=== PATIENT | male | born 1970 | race Caucasian/White ===

== ENCOUNTER 2023-11-19 21:07 | Emergency (ER) | payer BC, SELFPAY ==
--- NOTE | ~2023-11-19 | XR_ITS ---
Left Knee Technique: AP, lateral, and oblique views were obtained. Clinical History: Swelling Findings: No fracture or dislocation is seen. Osseous alignment is anatomic. Joint spaces are preserv ed without degenerative or erosive change. Probable moderate joint effusion is seen. Impression: Probable moderate joint effusion, nonspecific. Reviewed, dictated and finalized at location . Impression: Probable moderate joint effusion, nonspecific.
[2023-11-19 21:08] VITALS: BP 123/93; PULSE 103; RESP 18; TEMP 36.4; O2SAT 97
--- NOTE | 2023-11-20 00:14 | ED.EXTPRO ---
HPI - Extremity Problem General Chief complaint: Extremity Problem,Nontraumatic <Sasha Gonzalez APRN - Last Filed: 11/20/23 02:10> Stated complaint: Left knee pain <Sasha Gonzalez APRN - Last Filed: 11/20/23 02:10> Time Seen by Provider: 11/19/23 22:58 <Sasha Gonzalez APRN - Last Filed: 11/20/23 02:10> Source: patient and family <Sashaaurea Gonzalez APRN - Last Filed: 11/20/23 02:10> Mode of arrival: ambulatory <Sasha Gonzalez APRN - Last Filed: 11/20/23 02:10> Limitations: no limitations <Sasha Gonzalez APRN - Last Filed: 11/20/23 02:10> History of Present Illness HPI Narrative: Patient is a 52-year-old male who presents to the ER with complaints left knee swelling. He reports his pain started 2-1/2 days ago in the middle of his back. He reports the pain then presented in his left knee along with swelling and warmth. Patient reports he put a knee mobilizer on his left lower extremity but it was so tight that it was cutting off circulation and caused his left ankle to swell. 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 Patient endorses no pain when he is resting but it increases when he is walking. He denies other signs /symptoms of illness. Patient denies any medical history besides hyperlipidemia which he takes daily medication, along with baby aspirin. <Sasha Gonzalez APRN - Last Filed: 11/20/23 02:10> Related Data Home medications: Home Medications Medication Instructions Recorded Confirmed aspirin 81 mg tablet,delayed 81 mg PO DAILY 01/07/19 release rosuvastatin 5 mg tablet 5 mg PO DAILY 01/08/19 <Sasha Gonzalez APRN - Last Filed: 11/20/23 02:10> Allergies/Adverse reactions: Allergies Allergy/AdvReac Type Severity Reaction Status Date / Time No Known Allergies Allergy Verified 11/19/23 21:10 <Sasha Gonzalez APRN - Last Filed: 11/20/23 02:10> Review of Systems Review of Systems: All systems reviewed & are unremarkable except as noted in HPI and below <Sasha Gonzalez APRN - Last Filed: 11/20/23 02:10> [facility], [facility] Past Medical History Medical History: Medical History HLD (hyperlipidemia) <Sasha Gonzalez APRN - Last Filed: 11/20/23 02:10> Surgical History Surgical History: Surgical History Status post laparoscopic cholecystectomy <Sasha Gonzalez APRN - Last Filed: 11/20/23 02:10> Social History Social History: Social History Years smoked: 6 Smoking status: Former smoker Tobacco type: cigarettes Second hand tobacco smoke exposure: No Alcohol intake: current Drinks per week: 10 Substance use: never Substance use type: does not use Living arrangements: with family Occupation/Education: occupation Gender identity (if verbalized by the patient): Male <Sasha Gonzalez APRN - Last Filed: 11/20/23 02:10> Exam Narrative: GENERAL: Well appearing, well-nourished, non-toxic, in no acute distress. HEAD: Normocephalic, atraumatic. NECK: Supple. No adenopathy, no masses. RESPIRATORY: Airway patent, respirations nonlabored. Clear to auscultation bilaterally, no rales, rhonchi, wheezing. CARDIOVASCULAR: Regular rate and rhythm without murmurs, rubs, or gallops. Peripheral pulses 2+ and equal bilaterally. ABDOMINAL: Soft, nontender, nondistended, no hepatosplenomegaly. Normoactive BS. MUSCULOSKELETAL: Moves all extremities. Pt's LLE is swollen around his knee joint. His L calf is more swollen than his R calf, but there is no discoloration or warmth noted. SKIN: Warm, dry, normal color. No rashes. NEURO: A&O X3. Speech clear. Cranial nerves II-XII grossly intact. No ataxic movements. PSYCHIATRIC: Appropriate mood and affect. Normal interaction. <Hoda
[2023-11-20 00:27] VITALS: BP 120/81; PULSE 97; RESP 19; TEMP 36.4; O2SAT 99
[2023-11-20 01:00] LABS: Basophils Percent Auto 0.7 % (0.2-1.2); Eosinophils Absolute Auto 0.2 K/mm3 (0-0.3); Eosinophils Percent Auto 3.2 % (0-4.4); Hematocrit 41.6 % (42.0-52.0); Hemoglobin 13.8 g/dL (14.0-18.0); Immature Granulocyte Absolute 0.03 K/mm3 (0.00-0.031); Immature Granulocyte Percent A 0.5 % (0-0.5); Lymphocytes Absolute Auto 1.92 K/mm3 (0.9-3.2); Lymphocytes Percent Auto 33.7 % (18.3-44.2); Mean Corpuscular HGB Conc 33.2 g/dl (32-36); Mean Corpuscular Hemoglobin 31.4 pg (26-34); Mean Corpuscular Volume 94.5 fl (80-100); Monocytes Absolute Auto 0.7 K/mm3 (0.1-0.6); Monocytes Percent Auto 12.1 % (2.6-8.5); Neutrophils Absolute Auto 2.8 K/mm3 (1.3-6.7); Neutrophils Percent Auto 49.8 % (45.5-73.1); Platelet Count Result 234 k/mm3 (150-375); Red Cell Distribution Width 13.3 % (11.5-14.5); White Blood Count 5.7 K/mm3 (4.5-10.0)
[2023-11-20 01:22] LABS: Alanine Aminotransferase 41 U/L (6-50); Albumin Level 4.2 g/dL (3.5-5.1); Alkaline Phosphatase 72 U/L (38-126); Anion Gap 12 mmol/L (4-12); Aspartate Amino Transferase 44 U/L (17-59); Bilirubin,Total 0.4 mg/dL (0.2-1.3); Blood Urea Nitrogen 23 mg/dL (9-20); Calcium 8.7 mg/dL (8.4-10.2); Carbon Dioxide 24 mmol/L (22-30); Chloride 103 mmol/L (98-107); Estimated CRCL calculation 144 ml/min; Estimated Glomerular Filt Rate > 60; Glucose 106 mg/dL (65-110); Sodium 139 mmol/L (137-145); Uric Acid 7.2 mg/dL (3.5-8.5)
[2023-11-20 01:37] LABS: D Dimer < 0.27 ug/mL (<0.48)
[2023-11-20] MEDS: NAPROXEN 500 MG TABLET PO (02:35)
== END 2023-11-20 02:50 | disposition home or self-care (01) ==
PROVIDERS: Emergency Provider Registered Nurse; PCP Family Medicine
DX: R22.42 Localized swelling, mass and lump, left lower limb (principal); E78.5 Hyperlipidemia, unspecified; Z87.891 Personal history of nicotine dependence; Z90.49 Acquired absence of other specified parts of digestive tract; Z79.82 Long term (current) use of aspirin; Z79.899 Other long term (current) drug therapy
CPT/HCPCS: 36415; 73562; 80053; 84550; 85025; 85380; 93971; 99283; A9270

== ENCOUNTER 2023-11-20 08:10 | Outpatient (CLI) | payer BC, SELFPAY ==
--- NOTE | ~2023-11-20 | US_ITS ---
LEFT LOWER EXTREMITY VENOUS ULTRASOUND Ordering provider: Sasha Gonzalez APRN History: . PAIN IN LEFT LEG . Comparison: None. FINDINGS: --COMMON FEMORAL: Patent and free of thrombus. Normal compressibility, phasic flow and augmentation. --PROXIMAL SUPERFICIAL FEMORAL: Patent and free of thrombus. Normal compressibility, phasic flow and augmentation. --DISTAL SUPERFICIAL FEMORAL: Patent and free of thrombus. Normal compressibility, phasic flow and au gmentation. --POPLITEAL: Patent and free of thrombus. Normal compressibility, phasic flow and augmentation. --POSTERIOR TIBIAL: Patent and free of thrombus. Normal compressibility, phasic flow and augmentation . IMPRESSION: Negative left lower extremity venous US. No deep vein thrombosis. Reviewed, dictated and finalized at location A.
== END 2023-11-20 08:11 | disposition home or self-care (01) ==
PROVIDERS: PCP Family Medicine; Visit Provider Registered Nurse
DX: M79.662 Pain in left lower leg (principal)
CPT/HCPCS: 93971

== ENCOUNTER 2024-07-13 19:07 | Emergency (ER) | payer BC, SELFPAY ==
--- OUTSIDE RECORDS SUMMARY | 2024-07-13 19:09 | XMS_ITS | Data Portability ---
Author Organization [place] - [facility] OFFICE Address [facility] [place] [address] Care Team Providers Care Account Leader Name Role Phone RONEL DENTON Primary Care Provider Assessment Encounter Date Assessment Date Assessment LastModified by Organization Details LastModified Time 02/16/2023 02/16/2023 Patient Examined by SIMONE Cage, Also Documentation reviewed and approved by supervising physician [email or web address] Not available 02/16/2023 14:52:46 Plan of Treatment Reminders Order Date Submit Date Provider Last Modified By Organization Details Last Modified Time Details Appointments None recorded. Lab urinalysis, complete 2023 024 [email or web address] Not available 4 10:33:14 HbA1c (hemoglobin A1c), blood 2023 024 [email or web address] Not available 4 10:33:15 hematocrit, blood 2023 024 [email or web address] Not available 4 10:33:15 creatinine w/ estimated GFR (eGFR), serum or plasma 2023 024 [email or web address] Not available 4 10:33:15 lipid panel, serum 2023 024 [email or web address] Not available 4 10:33:15 electrolyte panel, serum 2023 024 [email or web address] Not available 4 10:33:15 Referral None recorded. Procedures None recorded. Surgeries None recorded. Imaging None recorded. Medication Orders rosuvastati n 5 mg tablet 2023 024 [facility], [facility] [place], [address], 15:00:47 rosuvastati n 10 mg tablet [address] [id number], [address] [facility], [place], [place], [id number], 12:15:07 rosuvastati n 5 mg tablet 2020 021 [facility], [address] [place], [address], 13:35:22 Patient TargetsNo targets recorded. Patient Instructions Encounter Date Encounter Id Patient Instructions Last Modified By Organization Details Last Modified Time 07/28/2020 [id number] Exercise advised Low cholesterol diet advised Low sodium diet advised. [email or web address] Not available 07/30/2020 13:35:10 Scribed by Lisseth Fishman, MSN, SEED ANALYSIS LABORATORY ASSISTANT, [employer]ER-C Not available 07/30/2020 13:35:18 02/16/2023 [id number] Low cholesterol diet advised Low sodium diet advised. [email or web address] Not available 02/16/2023 15:00:38 03/28/2023 [id number] Weight loss 20 pounds Exercise advised Low cholesterol diet advised Low sodium diet advised. [email or web address] Not available 03/28/2023 15:42:22 Reason for Referral None Reported. Results Created Date Observation Date Name Description Value Unit Range Abnormal Flag Note LastModifiedBy Organization Detail LastModifiedTime 07/30/1907/28/2020 elect rocar diogr am No observ ation record ed. [email or web address] Not Available 2020 10:46:08 11/09/19 21 11/02/2020 , echo ardio gram No observ ation record ed. [facility] [address] [place] [address] [address] Garcia, [place], [address], 12/08/2020 16:55:22 02/28/19 23 02/24/2022 elect rocar diogr am No observ ation record ed. [email or web address] Not Available 2022 14:19:03 02/25/19 24 02/16/2023 elect allanar diogr am No observ ation record ed. [email or web address] Not Available 2023 11:10:16 03/28/19 24 03/22/2023 US, echoc ardio gram No observ ation record ed. [email or web address] Not Available 2023 09:56:17 03/29/19 24 03/10/2023 sleep study No observ ation record ed. [email or web address] Not Available 2023 13:15:04 Result Notes None recorded. Problems Name Problem SNOMED Code Status Onset Date Resolution Date Notes Provider Name and Address Organization Details Recorded Time Near syncope 477123191 Active 2018 Dav pena, [place] - [facility] 9 00:45:31 Mitral valve prolapse 013179069 Active 2018 Dav Forrester [place], [place] - [facility] 9 00:45:41 Tobacco dependence syndrome 91634006 Active 2018 Darricka Mitzy [place], [place] - [facility] 9 00:45:58 Obesity 961517316 Active 2018 Darricka Mit[place] - [facility] 9 00:46:13 Gallstone 027819782 Active 2018 Hala Mitzy [place] - [facility] 9 00:46:32 Chest pain 07443927 Active 2018 Dav Forrester [place] - [facility] 9 00:46:47 Alcohol dependence 29781696 Active 2018 Darricka Mit[place] - [facility] 9 00:49:54 Caffeine overdose 278387133 Active 2018 Darricka Mit[place] [facility] 9 00:50:30 Body mass index 30+ - obesity 588890719 Active 2018 Dav Forrester [place] - [facility] 9 00:50:44 Breathing- related sleep disorder 842057178 Active 2018 Dav Forrester [place], [place] - [facility] 9 00:51:16 Palpitatio ns 61648022 Active 2018 Dav Forrester null, [facility] 9 00:51:56 Hyperglyce charanjit 44261904 Active 2018 Dav Forrester null, [facility] 9 00:53:06 Bradycardi a 18687456 Active 2018 bradycardi a resting in the 40s at times Eric Yu i, MD [address] [place], [address] [place] [address] [facility] 9 13:27:22 Dyslipidem ia 076685285 Active 2018 Joss Ortiz [facility], [facility] 3 12:38:31 Problem Notes None recorded. Medical Equipment None Reported. Allergies No known drug allergies Medications Name Sig Start Date Stop Date Status Note LastModified by Organization Details LastModified Time amoxicilli n 500 mg capsule TAKE 1 CAPSULE BY MOUTH EVERY 6 HOURS UNTIL GONE 02/16 completed no longer takes 02/24/22 mb Not Available Not Available Not Available atorvastat in 40 mg tablet 1 Tab, OD 12/04 completed Not Available Not Available Not Available azithromyc in 250 mg tablet 05/08 completed Not Available Not Available Not Available hydrocodon e 5 mg-acetami nophen 325 mg tablet TAKE 1 TABLET BY MOUTH EVERY 4 TO 6 HOURS NEEDED FOR PAIN 02/16 completed no longer takes 02/24/22 mb Not Available Not Available Not Available penicillin V potassium 500 mg tablet 12/04 completed Not Available Not Available Not Available acetaminop hen 300 mg-codeine 30 mg tablet 12/04 completed Not Available Not Available Not Available nitroglyce rin 0.4 mg sublingual tablet prn 02/16 completed pt needs refill 021 [place] Not Available Not Available Not Available rosuvastat in 5 mg tablet Take 1 tablet by mouth every day 2023 active Not Available Not Available Not Avai lable rosuvastat in 10 mg tablet Take 1/2 tablet by mouth every day 02/15 completed Not Available Not Available Not Available aspirin 81 mg, 1 tab, OD 02/15 completed Not Available Not Available Not Available vitamin B complex 250 mg, 1 tab OD 07/28 completed pt not taking 07/28/20 Not Available Not Available Not Available Adult Aspirin Regimen 81 mg tablet,del ayed release Take 1 tablet every day by oral route. active Not Available Not Available No t Available ID NOW COVID-19 Test Kit TEST DIRECTED TODAY active Not Available Not Available No t Available Vitals Date Recorded Body height Body mass index (BMI) Body weight Heart rate Oxygen saturation Oxygen saturation in Arterial blood by Pulse oximetry Systolic blood pressure Diastolic blood pressure Provider Name and Address Organization Details Last Updated DateTime 4 190.5 cm 38.9 kg/m2 477409. 23 g 88 /min 93 % 93 % 143 mm[Hg] 95 mm[Hg] Heidy Blackburn [facility] 4 14:21:37 Date Recorded Body height Body mass index (BMI) Body weight Heart rate Oxygen saturation Oxygen saturation in Arterial blood by Pulse oximetry Systolic blood pressure Diastolic blood pressure Provider Name and Address Organization Details Last Updated DateTime 3 190.5 cm 36.7 kg/m2 226564. 16 g 68 /min 96 % 96 % 136 mm[Hg] 72 mm[Hg] Jodi Jamia [facility] 3 11:17:46 Date Recorded Body height Body mass index (BMI) Body weight Heart rate Respiratory rate Oxygen saturation Oxygen saturation in Arterial blood by Pulse oximetry Systolic blood pressure Diastolic blood pressure Provider Name and Address Organization Details Last Updated DateTime 4 190.5 cm 40.1 kg/m2 733694. 15 g 87 /min 16 /min 94 % 94 % 138 mm[Hg] 82 mm[Hg] Sim Marrero [facility] 4 15:21:28 Date Recorded Body height Body mass index (BMI) Body weight Heart rate Respiratory rate Oxygen saturation Oxygen saturation in Arterial blood by Pulse oximetry Systolic blood pressure Diastolic blood pressure Provider Name and Address Organization Details Last Updated DateTime 1 190.5 cm 40.6 kg/m2 005938. 52 g 93 /min 18 /min 97 % 97 % 130 mm[Hg] 94 mm[Hg] Arelis Toscano [facility] 1 17:32:25 Date Recorded Body height Body mass index (BMI) Body weight Heart rate Respiratory rate Oxygen saturation Oxygen saturation in Arterial blood by Pulse oximetry Systolic blood pressure Diastolic blood pressure Provider Name and Address Organization Details Last Updated DateTime 1 190.5 cm 40.4 kg/m2 895727. 34 g 86 /min 18 /min 96 % 96 % 118 mm[Hg] 80 mm[Hg] Arelis Toscano [facility] 14:27:55 Date Recorded Systolic blood pressure Diastolic blood pressure Provider Name and Address Organization Details Last Updated DateTime 09/29/2020 141 mm[Hg] 80 mm[Hg] Lisseth Fishman [facility] 09/29/2020 17:40:20 Date Recorded Body height Oxygen saturation Oxygen saturation in Arterial blood by Pulse oximetry Heart rate Body mass index (BMI) Body weight Provider Name and Address Organization Details Last Updated DateTime 1 190.5 cm 99 % 99 % 70 /min 40.9 kg/m2 212720. 7 g RADHA WASHINGTON [facility] 17:30:47 Social History Question Answer Notes LastModified by [employer] Details LastModified Time Tobacco Smoking Status Former Smoker quit 2012 Joss pena [facility] 10/12/2023 05:37:17 What Is Your Level Of Caffeine Consumption? Moderate [id number] Information not available 12/10/2019 What Type Of Diet Are You Following? REGULAR [id number] Information not available 12/10/2019 Live Alone Or With Others? With Others [email or web address] Information not available 05/08/2018 Marital Status [email or web address] Information not available 05/08/2018 What Was The Date Of Your Most Recent Tobacco Screening? 06/05/2018 [id number] Information not available 12/10/2019 How Many Children Do You Have? 0 [id number] Information not available 12/10/2019 How Much Tobacco Do You Smoke? 1 PPD [id number] Information not available 12/10/2019 How Many Years Have You Smoked Tobacco? 6 [id number] Information not available 12/10/2019 Sex: Unknown Functional Status Question Answer Note LastModified by [employer] Details LastModified Time What is your level of alcohol consumption? Moderate he quit [email or web address] Information not available 10/12/2023 What is your exercise level? None [id number] Information not available 12/10/2019 Mental Status None recorded. Family History Nothing Reported. Medical History Condition Response Valvular Heart Disease Y Hyperlipidemia Y Past Encounters Encounter ID Performer Location Encounter Start Date Encounter Closed Date Diagnosis/Indication Diagnosis SNOMED-CT Code Diagnosis ICD10 Code Diagnosis Note [id number] Eric Pedroza MD [facility] [address] [place] [address] 05/08/2018 14:22:01 05/08/2018 15:43:50 Dizziness 055626004 R42 Will arrange for cardiac CTA, he has high [place] Risk score. he would benefit from CT to look for any Coronary Artery Disease Palpitations 32966808 R0 0.2 Mitral valve prolapse 40 8201718 I34.1 mild MVP on 05/05/18 echo Snoring 76969141 R06.83 patient will benefit from sleep study Dyslipidemia 732979573 E 78.5 05/04/2018 Lipids: Trig 114, Chol 173, HDL 43, LDL 107 [id number] Eric Pedroza MD [facility] [address] [place] [address] 06/05/2018 12:06:47 06/05/2018 13:43:29 Dizziness 740810419 R42 Resolved now. He underwent a TMST on 05/05/18 that was negative for ischemia with normal LV systolic function. Had cardiac CTA on 05/14/18 revealing only mild CAD. Continue ASA and statin therapy. Palpitations 35650345 R0 0.2 Resolved now. Now consuming NO caffeine now. Mitral valve prolapse 40 1040287 I34.1 mild MVP on 05/05/18 echo Snoring 09360312 R06.83 patient will benefit from sleep study Dyslipidemia 455849390 E 78.5 Needs to keep LDL less than 70, and HDL more than 40 Trig 114, Chol 173, HDL 43, LDL 107 Now on atorvastat in 40 mg QHS [id number] Eric Pedroza MD [facility] [address] [place] [address] 12/04/2018 11:55:12 01/19/2019 19:04:42 Dizziness 143150641 R42 Resolved now. He underwent a TMST on 05/05/18 that was negative for ischemia with normal LV systolic function. Had cardiac CTA on 05/14/18 revealing only mild CAD. Continue ASA and statin therapy. Palpitations 85765427 R0 0.2 Resolved now. Now consuming NO caffeine now. Dyslipidemia 158354445 E 78.5 Needs to keep LDL less than 70, and HDL more than 40 Trig 114, Chol 173, HDL 43, LDL 107 No longer taking Atorvastat in; Will start Rosuvastat in 5mg daily. Mitral valve prolapse 40 7186522 I34.1 mild MVP on 05/05/18 echo Snoring 40593229 R06.83 patient will benefit from sleep study Peripheral venous insufficiency 29401270 I87.2 Will order venous reflux study. [id number] Eric Pedroza MD [facility] [address] [place] [address] 07/28/2020 16:59:14 07/30/2020 13:35:26 Hyperlipidemia 92418706 E78.5 Obtain FLP. Essential hypertension 26470874 I10 Elevated today. Blood pressure is elevated today, but this is only one reading, will keep close follow up, and consider medication change if blood pressure is still elevated next visit. Instructed to keep a log. Coronary arteriosclerosis 68552624 I25.10 Obtain echo to evaluate for structural /functiona l disease. [id number] Eric Pedroza MD [facility] [address] [place] [address] 09/29/2020 17:19:40 10/04/2020 22:52:06 Dyslipidemia 662850927 E78.5 Needs to keep LDL less than 70, and HDL more than 40 Trig 114, Chol 173, HDL 43, LDL 107 No longer taking Atorvastat in; Will start Rosuvastat in 5mg daily. Mitral valve prolapse 40 2163438 I34.1 mild MVP on 05/05/18 echoObtain echo to evaluate for structural /functiona l disease. Tobacco de pendence syndrome 23171931 F17.200 Advised to quit, patient is trying [id number] MD Billie Verduz[facility] Office [address] [place] [address] 02/24/2022 10:45:06 02/24/2022 11:39:24 Mitral valve prolapse 575523740 I34.1 mild MVP on 05/05/18 echoObtain echo to evaluate for structural /functiona l disease. Dyslipidemia 948347592 E 78.5 Needs to keep LDL less than 70, and HDL more than 40 Trig 114, Chol 173, HDL 43, LDL 107 No longer taking Atorvastat in; Will start Rosuvastat in 5mg daily. Alcohol dependence 08951 003 F10.20 Tobacco de pendence syndrome 85887011 F17.200 He quit 2012 Hyperlipidemia 84956992 E78.5 Obtain FLP. [id number] Eric Pedroza MD [place] [facility] [place] [address] 02/16/2023 14:06:57 02/16/2023 15:07:47 Mitral valve prolapse 679879610 I34.1 mild MVP on 05/05/18 echoUS, echocardio gram ECHO 11/02/20:L V chamber size is normal,LV wall thickness is normal,the estimated LVEF is 65-70%,LV relaxation is impaired,l eft atrium chamber is mildly dilated,mi tral valve prolapse cannot be ruled out. Dyslipidemia 512324295 E 78.5 Needs to keep LDL less than 70, and HDL more than 40 Trig 114, Chol 173, HDL 43, LDL 107 continue with Rosuvastat in 5mg daily. Alcohol dependence 17607 003 F10.20 He quit Tobacco de pendence syndrome 51629209 F17.200 He quit 2012 Hyperlipidemia 09414789 E78.5 Obtain FLP. Benign ess ential hypertension 1086132 I10 BP is well controlled today Dyspnea on exertion 6084 5006 R06.09 Obtain echo to evaluate for structural /functiona l disease. Obstructiv e sleep apnea syndrome 78782891 G47.33 snoring, daytime somnolence and AM headache. [id number] Eric Pedroza MD [place] [facility] [place] [address] 03/28/2023 14:53:28 03/28/2023 15:48:28 Mitral valve prolapse 605325535 I34.1 mild MVP on 05/05/18 echoUS, echocardio gram ECHO 11/02/20:L V chamber size is normal,LV wall thickness is normal,the estimated LVEF is 65-70%,LV relaxation is impaired,l eft atrium chamber is mildly dilated,mi tral valve prolapse cannot be ruled out. Dyslipidemia 838572787 E 78.5 Needs to keep LDL less than 70, and HDL more than 40 Trig 114, Chol 173, HDL 43, LDL 107 continue with Rosuvastat in 5mg daily. Alcohol dependence 59456 003 F10.20 He quit Tobacco de pendence syndrome 70418061 F17.200 He quit 2012 Hyperlipidemia 17623576 E78.5 Obtain FLP. Benign ess ential hypertension 2412836 I10 BP is well controlled today Obstructiv e sleep apnea syndrome 25203981 G47.33 Had a positive sleep study, will need Cpap Health Concerns Section Related Observation LastModified by Organization Detai ls LastModified Time None Recorded Concern Status LastModified by Organization Details LastModified Time None Recorded Advance Directives Directive None Recorded Payers Insurance Date Sequence Insurance Name Policy Number Policy Scott Covered Member ID Scott Member ID Guarantor Name 10/15/2023 1 JOE (PPO) [id number] 1 Christine Patiño [id number] Eliseo Patiño Notes Date Note Type Note Provider Name and Address Organization Details Recorded Time 07/28/2020 text/html 07/28/20 CC: Chest pain, palpitations 47 year-old man with a PMH of mitral valve prolapse, former tobacco dependence, heavy ETOH use, gallstones s/p cholecystectomy, obesity, presents today for follow-up. He was last seen in November 2018. Denies Er visits and hospitalization. No chest pain. No shortness of breath at rest. No dyspnea on exertion. No orthopnea. No PND's. No dizziness. No palpitation. No syncope or near syncope. No leg swelling. No nausea and vomiting. No side effects from medications. Former smoker; quiet approximately 15 years ago.Alcohol use; 3 times a week with 4-5 beers at a time. Reports that he isn't active. 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 Previously,Last seen 6 months ago. Down 8 lbs. Previously, he had a chief complaint of dizziness, palpitations, feeling warmth across chest, insomnia. Resolved now. Started on Atorvastatin 04/2018; he was on this for 2 months; stopped due to palpitations, insomnia. Initially evaluated for hospital visit to [facility] on 05/04/18 with complaints of atypical chest pain, near syncopal event. EKG was sinus bradycardia with no acute ischemic changes. Troponin I negative. D-dimer was less than 0.27. Urine drug screen was negative. He underwent a TMST on 05/05/18 that was negative for ischemia with normal LV systolic function. Had cardiac CTA on 05/14/18 revealing only mild CAD. He was at [facility] 3 days prior with similar symptoms of palpitations while seated. Had negative work-up. He had a distant past stress test many years ago which was reportedly good. He has no previous myocardial infarction, arrhythmia, hypertension, diabetes mellitus. He is a former smoker, 1 PPD for 6 years, quit 10 years ago. Drinks 3-4 beers a day on occasion, and occasional wine. Does have a daily high caffeine intake (1/2 pot of coffee daily.) Patient is adopted, no family history available. Patient has no children. 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 No chest pain. No shortness of breath at rest. No dyspnea on exertion. No orthopnea. No PND's. No dizziness. No palpitation. No syncope or near syncope. No leg swelling. No nausea and vomiting. No side effects from medications. Results from this visit, or from the past: 05/08/18 : Glucose 79,BUN 21,Creati 0.95Na 144,K 4.8,CL 106,Ca 9.7 05/05/18: Na 145 , K 4.4 ,CL 109 ,CO2 27, GLU 96, BUN 15, CR 0.9 ,HgA1c 4.9005/04/18: Hgb 14.8, Hct 43.6, Na 136, K 4.0, BUN 13, Cr 0.9, Glu 103, TSH 0.89 05/04/2018 Lipids:Trig 114, Chol 173, HDL 43, LDL 107 EKG, 12/04/18: Sinus Rhythm, ABN EKG, mu CT, angiogram, chest, w/wo contrast 05-14-2018 05/14/18 CTA chest: Mild coronary artery disease 05/05/18 EKG: Normal sinus rhythm with sinus arrhythmia. Normal ECG. When compared with ECG of 04-MAY-2018, ST elevation now present in inferior leads. Non-specific change in ST segmental in lateral leads. T wave inversion no longer evident in inferior leads. T wave amplitude has increased in anterior leads. cardiac stress test 05-05-2018 Body habitus limited evaluation,especially given the utilization of a one day protocol,There is probable small reversible perfusion abnormaqlityof mild US, echocardiogram 05-05-2018 There is normal left ventricular wall thickness .THe lleft ventricle is normal in structure and function,Ejection fraction =55-60% NM, myocardial perfusion scan, w/ stress 05-05-2018 05/04/18 Stress Myoview Walk: Mild exercise impairment. Adequate heart rate response to exercise. Adequate blood pressure to exercise. Test negative 05/14/18 CTA chest: Mild coronary artery disease Lisseth Fishman [facility] 07/30/2020 13:35:25 09/29/2020 text/html 09/29/20CC : Car diac follow up49 year-old man with a PMH of mitral valve prolapse, former tobacco dependence, heavy ETOH use, gallstones s/p cholecystocecostomy, and obesity, presents today for 2 week follow-up.He was last seen in the clinic on 07/28/20 , since then he feels wellDenies chest pain.Denies shortness of breath at rest. Has mild dyspnea on exertion.No orthopnea. No PNDs.Denies heart palpitations.Denies dizziness. Denies syncope or near syncope.No ankle or leg edema.No major bleeding events.No reported side effects from medications. Taking medications as prescribed with no missed doses.Denies snoring, daytime somnolence and AM headache.Former smoker; quiet approximately 15 years ago.Alcohol use; 3 times a week with 4-5 beers at a time.He is a former smoker, 1 PPD for 6 years, quit 10 years ago. Drinks 3-4 beers a day on occasion, and occasional wine.Reports that he isn't active. 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 I negative. D-dimer was less than 0.27. Urine drug screen was negative.He underwent a TMST on 05/05/18 that was negative for ischemia with normal LV systolic function.*Had cardiac CTA on 05/14/18 revealing only mild CAD.He was at [facility] 3 days prior with similar symptoms of palpitations while seated. Had negative work-up.He has no previous myocardial infarction, arrhythmia, hypertension, diabetes mellitus.Does have a daily high caffeine intake (1/2 pot of coffee daily.)Patient is adopted, no family history available. Patient has no children. 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 Normal ECG. When compared with ECG of 04-MAY-2018, ST elevation now present in inferior leads. Non-specific change in ST segmental in lateral leads. T wave inversion no longer evident in inferior leads. T wave amplitude has increased in anterior leads.cardiac stress test [id number] habitus limited evaluation,especially given the utilization of a one day protocol,There is probableUS, echocardiogram [id number] is normal left ventricular wall thickness .THe left ventricle is normal in structure and function,Ejection fraction =55-60%NM, myocardial perfusion scan, w/ stress Stress Myoview Walk: Mild exercise impairment. Adequate heart rate response to exercise. Adequate blood pressure to exercise. Test negative 05/14/18 CTA chest: Mild coronary artery disease Eric Pedroza MD [address] [place], [address], [facility] 10/04/2020 22:52:05 02/24/2022 text/html 02/24/22CC : Car diac follow up, dyspnea on [id number] year-old man with a PMH of mitral valve prolapse, former tobacco dependence, heavy ETOH use, gallstones s/p cholecystocecostomy, and obesity, presents today for follow-up with ECHO results. He was last seen in the clinic on 09/29/20, since then he is doing wellHe denies ER visits and hospitalizations since he was last seen. Today reports:Denies chest pain.Denies shortness of breath at rest. Has mild dyspnea on exertion.No orthopnea. No PNDs.Denies heart palpitations.Denies dizziness. Denies syncope or near syncope.No ankle or leg edema.No major bleeding events.No reported side effects from medications. Taking medications as prescribed with no missed doses.Denies snoring, daytime somnolence and AM headache.*Last LDL was 107 done on 05/04/18.Pt takes rosuvastatin 5 mg. *Had ECHO 11/02/20 showed LV chamber size is normal,LV wall thickness is normal,the estimated LVEF is 65-70%,LV relaxation is impaired,left atrium chamber is mildly dilated,mitral valve prolapse cannot be ruled out. Previously:Former smoker; quiet approximately 15 years ago.Alcohol use; 3 times a week with 4-5 beers at a time.He is a former smoker, 1 PPD for 6 years, quit 10 years ago. Drinks 3-4 beers a day on occasion, and occasional wine.Reports that he isn't active. 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 EKG was sinus bradicardia with no acute ischemic changes. I negative. D-dimer was less than 0.27. Urine drug screen was negative.He underwent a TMST on 05/05/18 that was negative for ischemia with normal LV systolic function.*Had cardiac CTA on 05/14/18 revealing only mild CAD.He was at [facility] 3 days prior with similar symptoms of palpitations while seated. Had negative work-up.He has no previous myocardial infarction, arrhythmia, hypertension, diabetes mellitus.Does have a daily high caffeine intake (1/2 pot of coffee daily.)Patient is adopted, no family history available. Patient has no children. 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 Normal ECG. When compared with ECG of 04-MAY-2018, ST elevation now present in inferior leads. Non-specific change in ST segmental in lateral leads. T wave inversion no longer evident in inferior leads. T wave amplitude has increased in anterior leads.cardiac stress test [id number] habitus limited evaluation,especially given the utilization of a one day protocol,There is probableUS, echocardiogram [id number] is normal left ventricular wall thickness .THe left ventricle is normal in structure and function,Ejection fraction =55-60%NM, myocardial perfusion scan, w/ stress Stress Myoview Walk: Mild exercise impairment. Adequate heart rate response to exercise. Adequate blood pressure to exercise. Test negative 05/14/18 CTA chest: Mild coronary artery disease Eric Pedroza MD [address] [place], [address], [facility] 02/24/2022 11:38:42 02/16/2023 text/html 02/16/23CC : Car diac follow up dyspnea on [id number] year-old man with a PMH of mitral valve prolapse, former tobacco dependence, former heavy ETOH use, mild coronary artery disease per his CT, gallstones s/p cholecystocecostomy, and obesity, presents today for 1 year follow-up. He was last seen in the clinic on 02/24/22, since then he is doing well. He is very active with no problem. He denied chest pain or dyspnea on exertion. *Last LDL was 93 done on 02/03/22.Pt takes rosuvastatin 5 mg. He denies ER visits and hospitalizations since he was last seen. Today reports:no ccDenies chest pain.Denies shortness of breath at rest. Has mild dyspnea on exertion.No orthopnea. No PNDs.Denies heart palpitations.Denies dizziness. Denies syncope or near syncope.No ankle or leg edema.No major bleeding events.No reported side effects from medications. Taking medications as prescribed with no missed doses.yes snoring, daytime somnolence and AM headache.*Last LDL was 93 done on 02/03/22.Pt takes rosuvastatin 5 mg. Previously:*Had ECHO 11/02/20 showed LV chamber size is normal,LV wall thickness is normal,the estimated LVEF is 65-70%,LV relaxation is impaired,left atrium chamber is mildly dilated,mitral valve prolapse cannot be ruled out. Former smoker; quiet approximately 15 years ago.Alcohol use; 3 times a week with 4-5 beers at a time.He is a former smoker, 1 PPD for 6 years, quit 10 years ago. Drinks 3-4 beers a day on occasion, and occasional wine. Reports that he isn't active. 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 I negative. D-dimer was less than 0.27. Urine drug screen was negative.He underwent a TMST on 05/05/18 that was negative for ischemia with normal LV systolic function.*Had cardiac CTA on 05/14/18 revealing only mild CAD.He was at [facility] 3 days prior with similar symptoms of palpitations while seated. Had negative work-up.He has no previous myocardial infarction, arrhythmia, hypertension, diabetes mellitus.Does have a daily high caffeine intake (1/2 pot of coffee daily.)Patient is adopted, no family history available. Patient has no children. 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 Normal ECG. When compared with ECG of 04-MAY-2018, ST elevation now present in inferior leads. Non-specific change in ST segmental in lateral leads. T wave inversion no longer evident in inferior leads. T wave amplitude has increased in anterior leads.cardiac stress test [id number] habitus limited evaluation,especially given the utilization of a one day protocol,There is probableUS, echocardiogram [id number] is normal left ventricular wall thickness .THe left ventricle is normal in structure and function,Ejection fraction =55-60%NM, myocardial perfusion scan, w/ stress Stress Myoview Walk: Mild exercise impairment. Adequate heart rate response to exercise. Adequate blood pressure to exercise. Test negative 05/14/18 CTA chest: Mild coronary artery disease Danielle Mancia [facility] 02/21/2023 15:11:52 03/28/2023 text/html 03/28/23CC : Car diac follow up52 year-old man with a PMH of mitral valve prolapse, former tobacco dependence, former heavy ETOH use, mild coronary artery disease per his CT, gallstones s/p cholecystocecostomy, and obesity, presents today for 1 month follow-up. He was last seen in the clinic on 02/16/23, since then he had sleep study, with moderate PONCE, will need CpapHe denies ER visits and hospitalizations since he was last seen. Today reports:Denies chest pain.Denies shortness of breath at rest. Has mild dyspnea on exertion.No orthopnea. No PNDs.Denies heart palpitations.Denies dizziness. Denies syncope or near syncope.No ankle or leg edema.No major bleeding events.No reported side effects from medications. Taking medications as prescribed with no missed doses.Denies snoring, daytime somnolence and AM headache.*Last LDL was 93 done on 02/03/22.Pt takes rosuvastatin 5 mg. Previously:*Had ECHO 11/02/20 showed LV chamber size is normal,LV wall thickness is normal,the estimated LVEF is 65-70%,LV relaxation is impaired,left atrium chamber is mildly dilated,mitral valve prolapse cannot be ruled out. Former smoker; quiet approximately 15 years ago.Alcohol use; 3 times a week with 4-5 beers at a time.He is a former smoker, 1 PPD for 6 years, quit 10 years ago. Drinks 3-4 beers a day on occasion, and occasional wine. Reports that he isn't active. 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 I negative. D-dimer was less than 0.27. Urine drug screen was negative.He underwent a TMST on 05/05/18 that was negative for ischemia with normal LV systolic function.*Had cardiac CTA on 05/14/18 revealing only mild CAD.He was at [facility] 3 days prior with similar symptoms of palpitations while seated. Had negative work-up.He has no previous myocardial infarction, arrhythmia, hypertension, diabetes mellitus.Does have a daily high caffeine intake (1/2 pot of coffee daily.)Patient is adopted, no family history available. Patient has no children. 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 Normal ECG. When compared with ECG of 04-MAY-2018, ST elevation now present in inferior leads. Non-specific change in ST segmental in lateral leads. T wave inversion no longer evident in inferior leads. T wave amplitude has increased in anterior leads.cardiac stress test [id number] habitus limited evaluation,especially given the utilization of a one day protocol,There is probableUS, echocardiogram [id number] is normal left ventricular wall thickness .THe left ventricle is normal in structure and function,Ejection fraction =55-60%NM, myocardial perfusion scan, w/ stress Stress Myoview Walk: Mild exercise impairment. Adequate heart rate response to exercise. Adequate blood pressure to exercise. Test negative 05/14/18 CTA chest: Mild coronary artery disease Eric Pedroza MD [address] [place], [address], [facility] 03/28/2023 15:43:59
--- OUTSIDE RECORDS SUMMARY | 2024-07-13 19:09 | XMS_ITS | Clinical Summary ---
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 Gender Identity Not on file Sexual Orientation Not on file Plan of Treatment Health Maintenance Due Date Last Done Comments Hepatitis C Virus (HCV) Screening 1968 TdaP Immunization 1968 Hepatitis B Immunization (1 of 3 - 19+ 3-dose series) 12/24/1987 Colonoscopy 2013 Colorectal Cancer Screening 2013 Cologuard 2018 Immunochemical Fecal Occult Blood 2018 Pneumococcal Immunization (5 0+ years) (1 of 1 - PCV) 2018 Zoster Immunization (1 of 2) 2018 Influenza Immunization (#1) 2023 SARS-COV-2 Immunization ( season) 2023 PSA Discussion 12/24/2023 Respiratory Syncytial Virus (RSV) Immunization (Adult) (1 - 1-dose 75+ series) 12/24/2043 Meningococcal Immunization (ACWY) Aged Out No longer eligible based on patient's age to complete this topic Pneumococcal Immunization Combined Aged Out No longer eligible based on patient's age to complete this topic Rotavirus Immunization Aged Out No lo nger eligible based on patient's age to complete this topic
[2024-07-13 19:10] VITALS: BP 184/109; PULSE 92; RESP 20; TEMP 36.7; O2SAT 95
--- OUTSIDE RECORDS SUMMARY | 2024-07-13 19:30 | XMS_ITS | Clinical Summary ---
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
--- NOTE | 2024-07-13 19:52 | ED.UPPEXIN ---
HPI - Extremity Injury (Upper) General Chief Complaint: Extremity Injury, Upper Stated Complaint: finger laceration Time Seen by Provider: 07/13/24 19:21 History of Present Illness HPI narrative: 53-year-old male presents to the emergency department for laceration to his left index finger that occurred prior to arrival. Patient states he was cutting bread with a serrated knife and accidentally cut his finger. Bleeding controlled. Last Tdap unknown. Denies difficulty with range of motion. History of hypertension and hyperlipidemia. Related Data Home Medications ?Medication ?Instructions ?Recorded ?Confirmed ?Last Taken ?Type aspirin 81 mg tablet,delayed 81 mg PO DAILY 01/07/19 11/21/23 Unknown History release rosuvastatin 5 mg tablet 5 mg PO DAILY 01/08/19 11/21/23 Unknown History Allergies Allergy/AdvReac Type Severity Reaction Status Date / Time No Known Allergies Allergy Verified 07/13/24 19:13 Review of Systems Review of Systems: All systems reviewed & are unremarkable except as noted in HPI and below PMFSH Past Medical History Medical History HLD (hyperlipidemia) Surgical History Surgical History Status post laparoscopic cholecystectomy Social History Social History Years smoked: 6 Smoking status: Former smoker Tobacco type: cigarettes Second hand tobacco smoke exposure: No Alcohol intake: current Drinks per week: 10 Substance use: never Substance use type: does not use Do You Feel Safe in your Home?: Yes Lack of Transportation: No Lack of Food: Never True Current Housing: I Have Housing Concerned About Future Housing: No Difficulty Paying Gas/Electric Bills: No Difficulty Paying for Meds: No Currently Unemployed: No Education: High School Diploma/GED Difficulty w/ Childcare or Family Care: No Living arrangements: with family Occupation/Education: occupation Gender identity (if verbalized by the patient): Male Exam Narrative: GENERAL: Well-appearing, well-nourished, and in no acute distress. HEAD: Normocephalic, atraumatic. EYES: EOMI. ENT: Nares clear, no rhinorrhea or epistaxis. Mucous membranes moist. NECK: Supple. CHEST: Clear to auscultation. No respiratory distress. HEART: Regular rate and rhythm. No murmur heard. Normal peripheral pulses. EXTREMITIES: Normal range of motion. No edema. SKIN: 1.5 cm linear superficial laceration to the distal phalanx of the left 2nd digit, bleeding controlled, no deep structures or foreign bodies visualized, no nail involvement. Patient has full active and passive range of motion of digit without difficulty. Sensation intact. Cap refill less than 2. NEURO: No focal deficits. Alert and oriented x3 Course Vital Signs Vital signs: Vital Signs Temperature 98.1 F 07/13/24 19:10 Pulse Rate 92 07/13/24 19:10 Respiratory Rate 20 07/13/24 19:10 Blood Pressure 184/109 H 07/13/24 19:10 Pulse Oximetry 95 07/13/24 19:10 Oxygen Delivery Room Air 07/13/24 19:10 Temperature 98.1 F 07/13/24 19:10 Pulse Rate 98 07/13/24 21:09 Respiratory Rate 20 07/13/24 19:10 Blood Pressure 151/98 H 07/13/24 21:09 Pulse Oximetry 94 07/13/24 21:09 Oxygen Delivery Room Air 07/13/24 19:10 Procedures Laceration Laceration 1: Site: upper extremity Side (If applicable): left Size (cm): 1.5 Description: linear Depth: simple, single layer Local Anesthetic: lidocaine 1% Amount of anesthesia used (mL): 2 Pre-repair: wound explored, irrigated and irrigated extensively ====== Skin Level ====== Skin layer closed with: nylon Size (cm): 5-0 Number of sutures: 4 Technique: simple, interrupted ====== Subcutaneous Layer ====== ====== Muscle Layer ====== ====== Tendon Layer ====== MDM - Extremity Injury (Upper) [facility] Narrative Medical decision making narrative: 53-year-old male presents emergency department for laceration to his left index finger that occurred prior to arrival. Exam is notable for a 1.5 cm linear superficial laceration to the left 2nd digit over the distal phalanx. No deep structures or foreign bodies visualized. Patient is neurovascularly intact. I did offer x-ray to rule out osseous abnormality and foreign bodies, however patient declined. Laceration irrigated extensively with normal saline and closed by MICHAEL Bills as noted above. 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 Will provide Keflex. Discussed wound care and suture removal in 7 days as well as strict ED return precautions. He is agreeable with the plan verbalized understanding. Discharged in stable condition. Discharge Plan Discharge Clinical Impression: Laceration Patient Disposition: Home Condition: Stable Instructions: Antibiotic Form, Laceration (ED) Additional Instructions: You were evaluated in the emergency department for laceration. Four stitches were placed. Please get these removed in 7 days. Please take the antibiotics as directed. Keep the laceration clean and dry. Return to the emergency department sooner if you develop fever, surrounding redness, drainage, or other concerning symptoms. Patient Language: Luxembourger Prescriptions: New cephalexin 500 mg capsule 500 mg PO Q8H 5 Days Qty: 15 0RF No Action aspirin 81 mg tablet,delayed release (DR/EC) 81 mg PO DAILY rosuvastatin 5 mg tablet 5 mg PO DAILY naproxen 500 mg tablet 500 mg PO BID PRN (Reason: pain) Qty: 10 0RF Follow-up/Referrals: Deangelo Suh MD [Primary Care Provider] -
[2024-07-13] MEDS: TETANUS,DIPHTHERIA,AC PERTUSSIS ADULT (0.5 ML) BOOSTRIX IM (19:56)
[2024-07-13 21:09] VITALS: BP 151/98; PULSE 98; O2SAT 94
[2024-07-13] MEDS: CEPHALEXIN 500 MG CAPSULE PO (21:11)
== END 2024-07-13 23:49 | disposition home or self-care (01) ==
PROVIDERS: Emergency Provider Physician Assistant; PCP Family Medicine
DX: S61.211A Laceration without foreign body of left index finger without damage to nail, initial encounter (principal); Z23 Encounter for immunization; I10 Essential (primary) hypertension; E78.5 Hyperlipidemia, unspecified; Z90.49 Acquired absence of other specified parts of digestive tract; Z79.82 Long term (current) use of aspirin; Z79.899 Other long term (current) drug therapy; W26.0XXA Contact with knife, initial encounter; Y93.G1 Activity, food preparation and clean up
CPT/HCPCS: 12001; 90471; 90715; 99283; A9270